=== PATIENT | male | born 1985 | race African-American/Black ===

== ENCOUNTER 2017-06-17 18:25 | Emergency (ER) | payer OTHER ==
[~2017-06-17] VITALS: Ht 185.4 cm; Wt 81.6 kg
[2017-06-17 18:33] VITALS: Ht 185.4 cm; Wt 81.6 kg
[2017-06-17 20:43] VITALS: BP 127/64
== END 2017-06-17 20:43 | disposition home or self-care (01) ==
LOC: ED 18:25
DX: J45.909 Unspecified asthma, uncomplicated (principal); G47.00 Insomnia, unspecified; J06.9 Acute upper respiratory infection, unspecified